=== PATIENT | male | born 1960 | race Two or more races ===

== ENCOUNTER 2025-06-14 19:17 | Inpatient (IN) | payer MEDICAID, OTHER ==
[~2025-06-14] VITALS: Ht 170.2 cm; Wt 74.7 kg
--- NOTE | 2025-06-14 20:13 | ED.PDOC ---
History of Present Illness HPI Comments 64 y/o M is [id number] relative for c/c of urinary retention. Per relative, patient endorses on 2x day history of being only to produce "droplets" of urine. No previous history of similar issues in the past. Only reported medical history of kidney disease. No reported dysuria, hematuria, fever, chills, or further acute symptoms. Chief Complaint: Urinary Time Seen by MD: 19:40 Reviewed Notes: Nurses Notes, Medications, Allergies Information Source: Patient Mode of Arrival: Wheelchair Severity: Moderate Timing: Hours Duration: Since onset Prehospital treatment: None Past Medical History PAST MEDICAL HISTORY: CKF Surgical History: Denies all surgeries Social History Smoker: Non-Smoker Alcohol: Denies ETOH Use Drugs: Denies Drug Use Lives In: Home All Other Systems: Reviewed and Negative (As per HPI) Physical Exam General Appearance: Mild Distress, Normal HEENT: Normal ENT Inspection, Pharynx Normal, TMs Normal Neck: Full Range of Motion, Non-Tender, Normal, Normal Inspection Respiratory: Chest Non-Tender, Lungs Clear, No Accessory Muscle Use, No Respiratory Distress, Normal Breath Sounds Cardiovascular: No Edema, No JVD, No Murmur, No Gallop, Normal Peripheral Pulses, Regular Rate/Rhythm Breast Exam: Deferred Gastrointestinal: No Organomegaly, Non Tender, No Pulsatile Mass, Normal Bowel Sounds, Soft Genitalia: Deferred Pelvic: Deferred Rectal: Deferred Extremities: No calf tenderness, Normal capillary refill, Normal inspection, Normal range of motion, Non-tender, No pedal edema Musculoskeletal : Apperance: Normal Neurologic: Alert, icer machine II-XII nml as Tested, No Motor Deficits, Normal Affect, Normal Mood, No Sensory Deficits Cerebellar Function: Normal Reflexes: Normal Skin: Dry, Normal Color, Warm Lymphatic: No Adenopathy Was a procedure done? Was a procedure done?: No Differential Dx Considerations may include: urolithiasis, nephrolithiasis, cystitis, pyelonephritis, among others X-Ray, Labs, Meds, VS Vital Signs Date Time Temp Pulse Resp B/P (MAP) Pulse Ox O2 Delivery O2 Flow Rate FiO2 06/14/25 19:21 100.0 87 18 163/69 98 100.0 Lab Test 06/14/25 20:17 06/14/25 19:52 Range/Units Urine Color Light-brown Yellow Urine Clarity Ex.turbid Clear Urine pH 7.0 5.0-9.0 Urine Specific [place] 1.013 1.001-1.035 Urine Protein 3+ H Negative Urine Ketones Negative Negative Urine Blood 3+ H Negative /uL Urine Nitrite Negative Negative Urine Bilirubin Negative Negative Urine Urobilinogen Normal Negative mg/dL Urine Leukocyte Esterase 3+ Negative /uL Urine RBC 794 0 - 3 /hpf Urine WBC Clumps Present None Seen /hpf Urine Microscopic WBC 2166 H 0-3 /HPF Urine Squamous Epithelial Cells None seen <5 /hpf Urine Bacteria None seen None Seen /hpf Urine Glucose Normal Normal mg/dL White Blood Count 17.2 H 4.4-10.8 10^3/uL Red Blood Count 3.51 L 4.5-5.90 10^6/uL Hemoglobin 10.9 L 13.5-17.5 g/dL Hematocrit 32.0 L 41.0-53.0 % Mean Corpuscular Volume 91.2 80.0-100.0 fL Mean Corpuscular Hemoglobin 31.1 28.0-32.0 pg Mean Corpuscular Hemoglobin Concent 34.1 32.0-36.0 g/dL Red Cell Distribution Width 13.6 11.8-14.3 % Platelet Count 227 140-450 10^3/uL Mean Platelet Volume 8.9 6.9-10.8 fL Neutrophils (%) (Auto) 90.1 H 37.0-80.0 % Lymphocytes (%) (Auto) 3.2 L 10.0-50.0 % Monocytes (%) (Auto) 6.3 0.0-12.0 % Eosinophils (%) (Auto) 0.2 0.0-7.0 % Basophils (%) (Auto) 0.2 0.0-2.0 % Neutrophils # (Auto) 15.5 H 1.6-8.6 10 ^3/uL Lymphocytes # (Auto) 0.5 0.4-5.4 10 ^3/uL Monocytes # (Auto) 1.1 0-1.3 10 ^3/uL Eosinophils # (Auto) 0 0-0.8 10 ^3/uL Basophils # (Auto) 0 0-0.2 10 ^3/uL Nucleated Red Blood Cells 0.0 % Sodium Level 141 136-145 mmol/L Potassium Level 4.7 3.5-5.1 mmol/L Chloride Level 102 98-107 mmol/L Carbon Dioxide Level 29 20-31 mmol/L Anion Gap 10 5-15 Blood Urea Nitrogen 53 H 9-23 mg/dL Creatinine 4.98 H 0.700-1.30 mg/dL Glomerular Filtration Rate Calc 12 >90 mL/min BUN/Creatinine Ratio 10.6 10.0-20.0 Serum Glucose 125 H 74-106 mg/dL Calcium Level 9.2 8.7-10.4 mg/dL Time of 1ST Reevaluation: 20:20 Reevaluation 1ST: Unchanged Patient Education/Counseling: Diagnosis, Treatment Family Education/Counseling: Diagnosis, Treatment SEPSIS Sepsis Screen Date sepsis recognized/suspect: Jun 14, 2025 Time Sepsis recognized/suspect: 1922 Recent Procedure: No On Antibiotic Therapy: No Respiratory Rate >20: No Heart Rate >90: No Temp<36 C (96.8 F) or >38.3 C: No SBP <90 or MAP <65 mmHG: No New Acute Mental Status Change: No Is the patient on CPAP, BIPAP,: No Physician Orders Lactic Acid W/ Reflex Order (06/14/25 21:07) Blood Culture (06/14/25 21:07) NS (06/14/25 21:15) Ceftriaxone Ivpb Rocephin (06/14/25 21:15) Vital Signs Date Time Temp Pulse Resp B/P (MAP) Pulse Ox O2 Delivery O2 Flow Rate FiO2 06/14/25 19:21 100.0 87 18 163/69 98 100.0 Laboratory Tests Test 06/14/25 19:52 White Blood Count 17.2 10^3/uL (4.4-10.8) H Departure 1 Departure Time of Disposition: 21:09 Impression: Primary Impression: Acute renal failure Additional Impressions: Urinary tract infection Pyelonephritis Disposition: ADMITTED INPATIENT Admit to: Med Surg Condition: Guarded Discharged With: Self Comments 64-year-old male with a history of renal insufficiency now with dysuria and signs of UTI. On lab review his urinalysis does confirm a UTI. He also has worsened kidney failure. Patient was given IV fluids and IV antibiotics. Patient will need to be admitted for supportive care and further workup and nephrology consultation Critical Care Note Critical Care Time?: No Stability Stability form required: No Heart Score Heart Score: Heart Score Response (Comments) Value History N/A 0 EKG N/A 0 Age N/A 0 Risk Factors N/A 0 Troponin N/A 0 Total 0 I personally scribed for NOEL RIVERA MD ([email or web address]) on 06/14/25 at 20:13. Electronically submitted by Marcos Kaminski [email or web address]). NOEL RIVERA MD Jun 14, 2025 20:13
[2025-06-14 20:14] LABS: Hematocrit 32.0 % (41.0-53.0); Hemoglobin 10.9 g/dL (13.5-17.5); Mean Corpuscular Hemoglobin 31.1 pg (28.0-32.0); Mean Corpuscular Volume 91.2 fL (80.0-100.0); Nucleated Red Blood Cells % 0.0 %
[2025-06-14 20:22] LABS: Chloride 102 mmol/L (98-107); Potassium 4.7 mmol/L (3.5-5.1); Sodium 141 mmol/L (136-145)
[2025-06-14 20:23] LABS: Anion Gap 10 (5-15); Calcium 9.2 mg/dL (8.7-10.4); Carbon Dioxide 29 mmol/L (20-31)
[2025-06-14 20:28] LABS: BUN/Creatinine Ratio 10.6 (10.0-20.0)
[2025-06-14 20:34] LABS: Blood Urea Nitrogen 53 mg/dL (9-23); Glucose 125 mg/dL (74-106)
[2025-06-14 20:35] LABS: Urine Protein, UAD 3+ (Negative); Urine WBC Clumps PRESENT /hpf (None Seen)
--- NOTE | 2025-06-14 21:55 | DVH ---
EXAM: CT CT AB PEL WO CON-NO ORAL OR IV History: flank pain Comparison Study: None TECHNIQUE: Multidetector CT of the abdomen and pelvis without IV contrast. Axial, coronal and sagittal multiplanar reformats were obtained from the axial data set by the technologist. Radiation Dose Information: CT Dose: CTDI volume is 11.27 mGy. Dose-length product is 3.92 mGy*cm FINDINGS: Bibasilar atelectasis. 4 mm right basilar pleural based nodule with 2.4 x 1.4 cm opacity of the right lung base overlying an area of linear atelectasis. Mild cardiomegaly with trace pericardial effusion. Moderate to significant distention of the gallbladder with no evidence of cholelithiasis or CT evidence of acute cholecystitis. Liver, spleen, pancreas and adrenal glands unremarkable. Moderate bilateral perinephric and periureteral fat stranding. Extrarenal pelvises with [id number] hydro nephrosis mild bilateral hydro ureters with nonobstructing calculus noted. Mild wall thickening of the urinary bladder with adjacent fat stranding. Prostate measures 3.3 x 4.5 x 3.8 cm. Mild gastric wall thickening. Small bowel loops unremarkable. Appendix is unremarkable. Redundancy of the colon. Large amount of fecal material within the colon. No evidence of intraperitoneal free air or free fluid. Fat stranding within the pelvis. No evidence of aortic aneurysm. [id number] atherosclerotic calcification of the aorta with heavy atherosclerotic calcification of the iliac arteries. No significant lymphadenopathy. Small fat containing left inguinal hernia. Minimal body wall edema. No evidence of acute osseous abnormalities. Mixed lytic and sclerosis of the L2 vertebral body with slightly increased sclerosis of the spinous process. Metastasis is within the differential. IMPRESSION: Moderate bilateral perinephric and Periureteral fat stranding with wall thickening of the urinary bladder and associated adjacent fat stranding. Correlate for cystitis with ascending infectious process. Mild to moderate bilateral hydronephrosis with no obstructing calculus noted. Constipation. Mild gastric wall thickening which may be due to inadequate distention/mild gastritis. Bibasilar linear atelectasis with 4 mm Right basilar solid nodule. Recommend correlation minor criteria. 2.4 x 1.4 cm opacity of the right lung base overlying an area of linear atelectasis which may represent atelectasis/scarring with lung lesion not excluded. Follow-up is recommended. Mixed lytic and sclerosis of the L2 vertebral body with slightly increased sclerosis of the spinous process of L2. Metastasis is within the differential.
[2025-06-14] MEDS: SODIUM CHLORIDE 0.9% 1,000 ML IV ONE (22:32)
[2025-06-14 22:35] LABS: INR 1.0 (0.9-1.15); Partial Thromboplastin Time 38.2 SEC (24.5-34.5); Prothrombin Time 10.6 sec (9.3-11.8)
[2025-06-14] MEDS ORDERED: SODIUM CHLORIDE 0.9% 2,000 ML IV ONE (23:30)
[2025-06-15] MEDS: SODIUM CHLORIDE 0.9% 1,000 ML IV ONE ×2 (00:09→02:21)
--- NOTE | 2025-06-15 01:37 | DVHHPRES ---
History of Present Illness Resident Creating Document: FAHAD [place] RESDIENT History of Present Illness This is a 64-year-old gentleman with past medical history of hypertension, BPH, diabetes, CKD, stroke, came to the hospital due to inability to pass urine since 2 days. Per patient, he adjust past few urine drops, which was associated with blood. He also reports of generalized weakness and lower abdominal discomfort. He denies fever, chest pain, shortness of breath, or any bowel habit changes. Patient being seen by welfare administrator (Dr. Marie), and per patient he was told that he may need dialysis in near future. PMHx:hypertension, BPH, diabetes, CKD, stroke PSHx: Hernia surgery Social history: Current smoker Home medication: Atorvastatin, duloxetine, tamsulosin, calcium acetate, sodium bicarbonate, amlodipine, Epogen, losartan, calcitriol, sucralfate, famotidine, and finasteride Allergic history: No known allergy Patient seen and examined at the bedside. Patient is complaining of inability to pass urine and abdominal discomfort. Review of Systems Review of Systems General: patient denies fever, fatigue, weaknes, sweating, any recent changes in appetite and weight HEENT: No headaches, visiual changes, hearing loss, tinnitus, nasal congestion and discharge, and sore throat. Cardiovascular: Denies chest pain, palpitations, dyspnea on exertion, orthopnea, or claudication. Respiratory: No cough, and wheezing. Gastrointestinal: Denies nausea, vomiting, dysphagia, odynophagia, heartburn, abdominal pain, flatulence, bloating, diarrhea, constipation, change in stool, or blood in stool. Genitourinary: Reports Inability to pass urine and lower abdominal discomfort Endocrine: No heat or cold intolerance, polydipsia, polyuria, and polyphagia. Neurological: No dizziness, extremity weakness and numbness, tremors, gait disturbance, seizures, and memory impairment. Psychiatric: Denies depression, anxiety,or insomnia. Musculoskeletal: Denies neck pain, stiffness and swelling, back pain, muscle weakness, joint pain, stiffness, swelling, or limited range of motion. Skin: No rashes, itching, skin lesion, changes in hair, nail, skin texture and breast. Hematologic/Lymphatic: Denies easy bruising, bleeding tendencies, or lymph node enlargement. Allergies: Coded Allergies: NO KNOWN ALLERGIES (Unverified , 06/15/25) Exam Vital Signs Vital Signs Date Time Temp Pulse Resp B/P (MAP) Pulse Ox O2 Delivery O2 Flow Rate FiO2 06/14/25 23:12 99.6 79 18 141/73 (95) 96 99.6 Exam General Appearance: Alert, Oriented X3, Cooperative, No acute distress HEENT: Atraumatic, PERRLA, EOMI, Mucous membrane moist/pink Respiratory: Clear to auscultation, Normal air movement Cardiovascular: Regular rate, Normal S1, Normal S2, No murmurs, no chest wall tenderness Abdominal: Lower abdominal tenderness Extremities: No clubbing, No cyanosis, No edema, Normal pulses, No tenderness/swelling Skin: No rashes, No breakdown, No significant lesion Neuro: Normal gait, Normal speech, Strength at 5/5 X4 ext, Normal tone, Sensation intact, Cranial nerves 3-12 NL, Reflexes 2+ Psych/Mental Status: Mental status NL, Mood NL Labs/Xrays Labs Test 06/14/25 21:34 06/14/25 20:17 06/14/25 19:52 Range/Units Lactic Acid Level 1.1 0.4-2.0 mmol/L Urine Color Light-brown Yellow Urine Clarity Ex.turbid Clear Urine pH 7.0 5.0-9.0 Urine Specific [place] 1.013 1.001-1.035 Urine Protein 3+ H Negative Urine Ketones Negative Negative Urine Blood 3+ H Negative /uL Urine Nitrite Negative Negative Urine Bilirubin Negative Negative Urine Urobilinogen Normal Negative mg/dL Urine Leukocyte Esterase 3+ Negative /uL Urine RBC 794 0 - 3 /hpf Urine WBC Clumps Present None Seen /hpf Urine Microscopic WBC 2166 H 0-3 /HPF Urine Squamous Epithelial Cells None seen <5 /hpf Urine Bacteria None seen None Seen /hpf Urine Glucose Normal Normal mg/dL White Blood Count 17.2 H 4.4-10.8 10^3/uL Red Blood Count 3.51 L 4.5-5.90 10^6/uL Hemoglobin 10.9 L 13.5-17.5 g/dL Hematocrit 32.0 L 41.0-53.0 % Mean Corpuscular Volume 91.2 80.0-100.0 fL Mean Corpuscular Hemoglobin 31.1 28.0-32.0 pg Mean Corpuscular Hemoglobin Concent 34.1 32.0-36.0 g/dL Red Cell Distribution Width 13.6 11.8-14.3 % Platelet Count 227 140-450 10^3/uL Mean Platelet Volume 8.9 6.9-10.8 fL Neutrophils (%) (Auto) 90.1 H 37.0-80.0 % Lymphocytes (%) (Auto) 3.2 L 10.0-50.0 % Monocytes (%) (Auto) 6.3 0.0-12.0 % Eosinophils (%) (Auto) 0.2 0.0-7.0 % Basophils (%) (Auto) 0.2 0.0-2.0 % Neutrophils # (Auto) 15.5 H 1.6-8.6 10 ^3/uL Lymphocytes # (Auto) 0.5 0.4-5.4 10 ^3/uL Monocytes # (Auto) 1.1 0-1.3 10 ^3/uL Eosinophils # (Auto) 0 0-0.8 10 ^3/uL Basophils # (Auto) 0 0-0.2 10 ^3/uL Nucleated Red Blood Cells 0.0 % Prothrombin Time 10.6 9.3-11.8 sec Prothrombin Time INR 1.00 0.9-1.15 Activated Partial Thromboplast Time 38.2 H 24.5-34.5 SEC Sodium Level 141 136-145 mmol/L Potassium Level 4.7 3.5-5.1 mmol/L Chloride Level 102 98-107 mmol/L Carbon Dioxide Level 29 20-31 mmol/L Anion Gap 10 5-15 Blood Urea Nitrogen 53 H 9-23 mg/dL Creatinine 4.98 H 0.700-1.30 mg/dL Glomerular Filtration Rate Calc 12 >90 mL/min BUN/Creatinine Ratio 10.6 10.0-20.0 Serum Glucose 125 H 74-106 mg/dL Calcium Level 9.2 8.7-10.4 mg/dL SEPSIS Sepsis Screen Date sepsis recognized/suspect: Jun 14, 2025 Time Sepsis recognized/suspect: 2311 Recent Procedure: No On Antibiotic Therapy: Yes Respiratory Rate >20: No Heart Rate >90: No Temp<36 C (96.8 F) or >38.3 C: No SBP <90 or MAP <65 mmHG: No New Acute Mental Status Change: No Is the patient on CPAP, BIPAP,: No Physician Orders Blood Culture (06/14/25 21:07) Ct Ab Pel Wo Con-No Oral Or Iv (06/14/25 21:11) Admit (06/14/25 23:47) Code Status (06/14/25 23:47) Vital Signs .PER UNIT PROTOCOL (06/14/25 23:47) Review Orders With Adm.Md (06/14/25 23:47) Notify Md Of Changes From Base (06/14/25 23:47) Advance Directive (06/14/25 23:47) Patient Condition (06/14/25 23:47) Allergies (06/14/25 23:47) Oxygen By Nasal Cannula (06/14/25 23:47) Stat Ekg For Chest Pain (06/14/25 23:47) Notify Md Of Changes From Base (06/14/25 23:47) Emergency Dysrhythmia Protocol (06/14/25 23:47) Rhythm Strips Once Every Shift (06/14/25 23:47) Bladder Scan (06/14/25 ) Vital Signs Date Time Temp Pulse Resp B/P (MAP) Pulse Ox O2 Delivery O2 Flow Rate FiO2 06/14/25 23:12 99.6 79 18 141/73 (95) 96 99.6 06/14/25 22:30 100.3 84 16 152/70 (97) 93 100.3 06/14/25 19:21 100.0 87 18 163/69 98 100.0 Laboratory Tests Test 06/14/25 19:52 06/14/25 21:34 White Blood Count 17.2 10^3/uL (4.4-10.8) H Lactic Acid Level 1.1 mmol/L (0.4-2.0) Medications Medications Dose Ordered Sig/Glenn Route Start Time Stop Time Status Last Admin Dose Admin Ceftriaxone Sodium/Dextrose 50 ml @ 50 mls/hr ONCE ONCE IV 06/14/25 21:15 06/14/25 22:14 DC 06/14/25 22:41 50 MLS/HR Sodium Chloride 1,000 ml @ 1,000 mls/hr Q1H ONCE IV 06/14/25 21:15 06/14/25 22:14 DC 06/14/25 22:32 1,000 MLS/HR Sodium Chloride 1,000 ml @ 1,000 mls/hr Q1H ONCE IV 06/15/25 00:00 06/15/25 00:59 DC 06/15/25 00:09 1,000 MLS/HR Assessment/Plan Assessment/Plan Sepsis, due to UTI Complicated UTI ROBERTA, on CKD, (due to obstructive nephropathy) VMN Urinary retention History of BPH History of stroke Diabetes type 2 Hypertension Moderate anemia, due to above * CT abdominopelvic shows, moderate bilateral perinephric and Periureteral fat stranding with wall thickening of the urinary bladder and associated adjacent fat stranding. Correlate for cystitis with ascending infectious process with Mild to moderate bilateral hydronephrosis with no obstructing calculus noted * Bladder scan performed, showed 76 mL Plan/recommendation: * Empiric antibiotic Zosyn, and vancomycin * IV fluid * Urine/blood culture * Consulted nephrology * Continue home meds DIET: Renal diet DVT PROPHYLAXIS: Lovenox GI PROPHYLAXIS:: Protonix CODE STATUS: Goal of care discussed for more than 18 minutes, full code DISPOSITION: Med/surge Patient's status and plan discussed with the patient. Case discussed with Dr. Rodriguez. Plan discussed with: Patient, Daughter, Other (RN) My Orders Orders - FAHAD [place] RESDIENT Procedure Category Date Status Time Admit ADMIT 06/14/25 Transmitted 23:47 Code Status CODE 06/14/25 Transmitted 23:47 Vital Signs [facility] 06/14/25 In Process 23:47 Review Orders With [facility] 06/14/25 In Process Adm. 23:47 Notify Of Changes [facility] 06/14/25 In Process From Base 23:47 Advance Directive [facility] 06/14/25 In Process 23:47 Patient Condition ORDERS 06/14/25 Transmitted 23:47 Allergies [facility] 06/14/25 In Process 23:47 Oxygen By Nasal RT 06/14/25 Transmitted Cannula 23:47 Stat Ekg For Chest [facility] 06/14/25 In Process Pain 23:47 Notify Of Changes [facility] 06/14/25 In Process From Base 23:47 Emergency Dysrhythmia [facility] 06/14/25 In Process Protocol 23:47 Rhythm Strips Once [facility] 06/14/25 In Process Every Shift 23:47 Bladder Scan ED NURSING 06/14/25 Transmitted Visit Coding STANDARD RES Billing Provider: LEANA RODRIGUEZ MD Date of Service if different f: Jun 14, 2025 Common Visit Codes: 84090-LAXCOQZ INP/OBS CARE (HIGH) Secondary Visit Codes: 60580-[id number] CARE PLAN 30 MINUTES FAHAD [place] Jun 15, 2025 01:37
[2025-06-15] MEDS ORDERED: VANCOMYCIN PER PHARMACY 0 MG IV SCH (01:45)
[2025-06-15] MEDS ORDERED: HYDROcodone-ACET 5/325MG TAB PO PRN (01:45)
[2025-06-15] MEDS: ATORVASTATIN 20 MG TAB PO ONE (02:15)
[2025-06-15] MEDS: TAMSULOSIN HYDROCHLORIDE 0.4 MG CAP PO ONE (02:15)
[2025-06-15] MEDS: ENOXAPARIN SOD 40 MG/0.4 ML SYRINGE SC ONE (02:16)
[2025-06-15] MEDS: FINASTERIDE 5 MG TAB PO ONE (02:16)
[2025-06-15] MEDS: VANCOMYCIN 1.5GM/250ML 250 ML IV ONE (04:03)
[2025-06-15 05:31] LABS: Protein, Urine 476.8 mg/dL (1-14)
[2025-06-15] MEDS ORDERED: ASCO500T11 GT (05:50)
[2025-06-15] MEDS ORDERED: FURO40TA4 PO (05:50)
[2025-06-15] MEDS ORDERED: LOSA-535 PO (05:50)
[2025-06-15] MEDS ORDERED: HYD25TP TOP (05:50)
[2025-06-15] MEDS ORDERED: SODI325T PO (05:50)
[2025-06-15] MEDS ORDERED: CHOL20TA PO (05:50)
[2025-06-15] MEDS ORDERED: AMLO1TAB23 PO (05:50)
[2025-06-15] MEDS ORDERED: ASPI1TAB20 PO (05:50)
[2025-06-15] MEDS ORDERED: FER325T PO (05:50)
[2025-06-15] MEDS ORDERED: HYDR100T10 PO (05:50)
[2025-06-15] MEDS ORDERED: DULO20CA PO (05:50)
[2025-06-15] MEDS ORDERED: FLUT250M2 INH (05:50)
[2025-06-15] MEDS ORDERED: ATOR-47 PO (05:50)
[2025-06-15] MEDS ORDERED: FINA5TAB4 PO (05:50)
[2025-06-15] MEDS ORDERED: SODI650T PO (05:50)
[2025-06-15] MEDS ORDERED: TAMS0.4C39 PO (05:50)
[2025-06-15] MEDS: ACETAMINOPHEN 325 MG TAB PO SCH (05:50)
[2025-06-15 05:55] LABS: Hematocrit 29.7 % (41.0-53.0); Hemoglobin 9.7 g/dL (13.5-17.5); Mean Corpuscular Hemoglobin 30.8 pg (28.0-32.0); Mean Corpuscular Volume 94.2 fL (80.0-100.0); Nucleated Red Blood Cells % 0.0 %
[2025-06-15 06:21] LABS: Alanine Aminotransferase 15 U/L (7-40); Albumin 3.6 g/dL (3.2-4.8); Alkaline Phosphatase 87 U/L (46-116); Anion Gap 11 (5-15); BUN/Creatinine Ratio 14.4 (10.0-20.0); Carbon Dioxide 26 mmol/L (20-31); Chloride 104 mmol/L (98-107); Magnesium 2.2 mg/dL (1.6-2.6); Potassium 4.4 mmol/L (3.5-5.1); Sodium 141 mmol/L (136-145); Total Protein 6.3 g/dL (5.7-8.2)
[2025-06-15 06:36] LABS: Bilirubin, Total 0.3 mg/dL (0.2-1.0); Blood Urea Nitrogen 67 mg/dL (9-23); Calcium 8.2 mg/dL (8.7-10.4); Glucose 124 mg/dL (74-106)
[2025-06-15 08:00] VITALS: O2SAT 96
[2025-06-15 09:00] VITALS: BP 120/65; PULSE 65; RESP 19; TEMP 97.4; O2SAT 97
[2025-06-15] MEDS: PANTOPRAZOLE 40 MG/10 ML VIAL INJ IV SCH (09:12)
[2025-06-15] MEDS: PIPERACILLIN-TAZOB 3.375GM 100 ML IV SCH (09:13)
[2025-06-15] MEDS: FINASTERIDE 5 MG TAB PO SCH (09:13)
[2025-06-15] MEDS: ENOXAPARIN SOD 40 MG/0.4 ML SYRINGE SC SCH (09:14)
[2025-06-15 13:00] VITALS: BP 134/48; PULSE 65; TEMP 98.2; O2SAT 97
--- NOTE | 2025-06-15 13:39 | DVHINCON2 ---
Date of service: Jun 15, 2025 Reason for Consultation CKD History of Present Illness 64 year old male hx CKD V, htn, Dm2, CVA w/ right residual weakness known to me from my renal clinic he is pending Peritoneal dialysis once he is ESRD but currently not time for dialysis He presented with 2 days of burning urination He is found to have urinary infection Past Medical History dm2, cva, htn Allergies: Coded Allergies: NO KNOWN ALLERGIES (Unverified , 06/15/25) Home Meds Reported Medications Sodium Bicarbonate (Sodium Bicarbonate) 650 Mg Tab, 650 MG PO, TAB 06/15/25 Ferrous Sulfate (FERROUS SULFATE) 325 Mg Tb, 325 MG PO, TAB 06/15/25 Finasteride (Finasteride) 5 Mg Tab, 1 TAB PO DAILY, #30 TAB 11 Refills 06/15/25 Amlodipine Besylate (Amlodipine Besylate) 10 Mg Tab, 1 TAB PO DAILY, #30 TAB 5 Refills 06/15/25 Aspirin (Aspir-81) 81 Mg Tab, 81 MG PO, TAB 06/15/25 Duloxetine Hcl (Cymbalta) 20 Mg Cap, 30 MG PO, CAP 06/15/25 Atorvastatin Calcium (ATORVASTATIN CALCIUM) 80 Mg Tab, 1 TAB PO DAILY, #30 TAB 5 Refills 06/15/25 Tamsulosin Hcl (Tamsulosin Hcl) 0.4 Mg Cap, 1 CAP PO DAILY, #30 CAP 5 Refills 06/15/25 Hydrocortone (Hydrocortisone 2.5%) 1 Applic Ap, 1 APPLIC TOP BID, #60 GRAMS 06/15/25 Ascorbic Acid (VITAMIN C TABLET) 500 Mg Tb, 500 MG GT, TAB 06/15/25 Fluticasone-Salmeterol (Advair Diskus 250/50) 1 Puff Ih, 1 PUFF INH BID, #3 INHALER 3 Refills 06/15/25 Furosemide (Furosemide) 40 Mg Tab, 1 TAB PO DAILY, #30 TAB 5 Refills 06/15/25 Cholecalciferol (Vitamin D3) 20 Mcg Tab, 50 MCG PO, TAB 06/15/25 Losartan Potassium (Losartan Potassium) 100 Mg Tab, 1 TAB PO DAILY, #30 TAB 5 Refills 06/15/25 Sodium Bicarbonate (Sodium Bicarbonate) 325 Mg Tab, 325 MG PO, TAB 06/15/25 Hydralazine Hcl (Hydralazine Hcl) 100 Mg Tab, 1 TAB PO TID, #90 TAB 5 Refills 06/15/25 Current Medications Current Medications Medications (Trade) Dose Ordered Sig/Glenn Route PRN Reason Start Time Stop Time Status Last Admin Piperacillin Sod/ Tazobactam Sod 100 ml @ 25 mls/hr Q12HR IV 06/15/25 10:00 06/15/25 09:13 Vancomycin HCl 0 ml @ 0 mls/hr PER PHARMACY IV 06/15/25 01:45 06/15/25 08:23 DC Acetaminophen (Tylenol Tablet) 650 mg Q6HR PO 06/15/25 06:00 06/15/25 05:50 Acetaminophen/ Hydrocodone Bitart (Wilber 5/325MG Tab) 1 tab Q6HPRN PRN PO MODERATE PAIN (4-6 PAIN SCALE) 06/15/25 01:45 Atorvastatin Calcium (Lipitor) 80 mg HS PO 06/15/25 22:00 Finasteride (Proscar Tablet) 5 mg DAILY PO 06/15/25 10:00 06/15/25 09:13 Tamsulosin HCl (Flomax) 0.4 mg QPM PO 06/15/25 18:00 Amlodipine Besylate (Norvasc Tablet) 5 mg DAILY PO 06/15/25 10:00 06/15/25 09:13 Pantoprazole Sodium (Protonix) 40 mg DAILY IV 06/15/25 10:00 06/15/25 09:12 Enoxaparin Sodium (Lovenox) 40 mg DAILY SC 06/15/25 10:00 06/15/25 09:14 Hydralazine HCl (Apresoline Tablet) 10 mg Q8HR PO 06/15/25 06:00 06/15/25 05:51 Family History: Patient reports no known family medical history. H&P Exam Vital Signs/I&O Vital Sign Date Time Temp Pulse Resp B/P (MAP) Pulse Ox O2 Delivery O2 Flow Rate FiO2 06/15/25 09:13 142/98 06/15/25 09:00 97.4 65 19 97 97.4 06/15/25 08:00 Room Air* 0 21 Intake and Output 06/14/25 06/15/25 19:00 07:00 Intake Total 250 ml Balance 250 ml Intake IV Total 250 ml Physical Exam elderly armenian male nad abd soft no pitting edema mild facial asymmetry Labs/Diagnostic Data Labs/Diagnostic Data Laboratory Tests Test 06/15/25 04:59 06/15/25 04:00 06/14/25 21:34 06/14/25 20:17 Range/Units Sodium Level 141 136-145 mmol/L Potassium Level 4.4 3.5-5.1 mmol/L Chloride Level 104 98-107 mmol/L Carbon Dioxide Level 26 20-31 mmol/L Anion Gap 11 5-15 Blood Urea Nitrogen 67 #H 9-23 mg/dL Creatinine 4.66 H 0.700-1.30 mg/dL Glomerular Filtration Rate Calc 13 >90 mL/min BUN/Creatinine Ratio 14.4 10.0-20.0 Serum Glucose 124 H 74-106 mg/dL Hemoglobin A1c 5.4 <5.7 % A1C Calcium Level 8.2 L 8.7-10.4 mg/dL Magnesium Level 2.2 1.6-2.6 mg/dL Total Bilirubin 0.3 0.2-1.0 mg/dL Aspartate Amino Transferase (AST) 9 L 13-40 U/L Alanine Aminotransferase (ALT) 15 7-40 U/L Alkaline Phosphatase 87 46-116 U/L Total Protein 6.3 5.7-8.2 g/dL Albumin 3.6 3.2-4.8 g/dL Parathyroid Hormone (Intact) 147.5 H 18.4-80.1 pg/mL White Blood Count 15.7 H 4.4-10.8 10^3/uL Red Blood Count 3.15 L 4.5-5.90 10^6/uL Hemoglobin 9.7 L 13.5-17.5 g/dL Hematocrit 29.7 L 41.0-53.0 % Mean Corpuscular Volume 94.2 80.0-100.0 fL Mean Corpuscular Hemoglobin 30.8 28.0-32.0 pg Mean Corpuscular Hemoglobin Concent 32.7 32.0-36.0 g/dL Red Cell Distribution Width 13.9 11.8-14.3 % Platelet Count 177 140-450 10^3/uL Mean Platelet Volume 9.0 6.9-10.8 fL Neutrophils (%) (Auto) 85.4 H 37.0-80.0 % Lymphocytes (%) (Auto) 7.3 L 10.0-50.0 % Monocytes (%) (Auto) 7.0 0.0-12.0 % Eosinophils (%) (Auto) 0.1 0.0-7.0 % Basophils (%) (Auto) 0.2 0.0-2.0 % Neutrophils # (Auto) 13.4 H 1.6-8.6 10 ^3/uL Lymphocytes # (Auto) 1.2 0.4-5.4 10 ^3/uL Monocytes # (Auto) 1.1 0-1.3 10 ^3/uL Eosinophils # (Auto) 0 0-0.8 10 ^3/uL Basophils # (Auto) 0 0-0.2 10 ^3/uL Nucleated Red Blood Cells 0.0 % Lactic Acid Level 1.1 0.4-2.0 mmol/L Urine Color Light-brown Yellow Urine Clarity Ex.turbid Clear Urine pH 7.0 5.0-9.0 Urine Specific [place] 1.013 1.001-1.035 Urine Protein 3+ H Negative Urine Ketones Negative Negative Urine Blood 3+ H Negative /uL Urine Nitrite Negative Negative Urine Bilirubin Negative Negative Urine Urobilinogen Normal Negative mg/dL Urine Leukocyte Esterase 3+ Negative /uL Urine RBC 794 0 - 3 /hpf Urine WBC Clumps Present None Seen /hpf Urine Microscopic WBC 2166 H 0-3 /HPF Urine Squamous Epithelial Cells None seen <5 /hpf Urine Bacteria None seen None Seen /hpf Urine Creatinine 70.37 30.0-125.0 mg/dL Urine Protein/Creatinine Ratio 6.78 Urine Sodium 49 40-220 mmol/L Urine Glucose Normal Normal mg/dL Urine Total Protein 476.8 H 1-14 mg/dL Test 06/14/25 19:52 Range/Units White Blood Count 17.2 H 4.4-10.8 10^3/uL Red Blood Count 3.51 L 4.5-5.90 10^6/uL Hemoglobin 10.9 L 13.5-17.5 g/dL Hematocrit 32.0 L 41.0-53.0 % Mean Corpuscular Volume 91.2 80.0-100.0 fL Mean Corpuscular Hemoglobin 31.1 28.0-32.0 pg Mean Corpuscular Hemoglobin Concent 34.1 32.0-36.0 g/dL Red Cell Distribution Width 13.6 11.8-14.3 % Platelet Count 227 140-450 10^3/uL Mean Platelet Volume 8.9 6.9-10.8 fL Neutrophils (%) (Auto) 90.1 H 37.0-80.0 % Lymphocytes (%) (Auto) 3.2 L 10.0-50.0 % Monocytes (%) (Auto) 6.3 0.0-12.0 % Eosinophils (%) (Auto) 0.2 0.0-7.0 % Basophils (%) (Auto) 0.2 0.0-2.0 % Neutrophils # (Auto) 15.5 H 1.6-8.6 10 ^3/uL Lymphocytes # (Auto) 0.5 0.4-5.4 10 ^3/uL Monocytes # (Auto) 1.1 0-1.3 10 ^3/uL Eosinophils # (Auto) 0 0-0.8 10 ^3/uL Basophils # (Auto) 0 0-0.2 10 ^3/uL Nucleated Red Blood Cells 0.0 % Prothrombin Time 10.6 9.3-11.8 sec Prothrombin Time INR 1.00 0.9-1.15 Activated Partial Thromboplast Time 38.2 H 24.5-34.5 SEC Sodium Level 141 136-145 mmol/L Potassium Level 4.7 3.5-5.1 mmol/L Chloride Level 102 98-107 mmol/L Carbon Dioxide Level 29 20-31 mmol/L Anion Gap 10 5-15 Blood Urea Nitrogen 53 H 9-23 mg/dL Creatinine 4.98 H 0.700-1.30 mg/dL Glomerular Filtration Rate Calc 12 >90 mL/min BUN/Creatinine Ratio 10.6 10.0-20.0 Serum Glucose 125 H 74-106 mg/dL Calcium Level 9.2 8.7-10.4 mg/dL Assessment CKD 5 HTN acute pyelonephritis anemia due to ckd dm2 CKD is stable, no indication for dialysis at this time. Has plan for outpatient peritoneal dialysis resume home medication IV aBX and urine cultures anemia panel avoid hypotension renal dm2 diet interview obtain at bedside in ER with nurse present and tele- armenian translation services Plan discussed with: Patient LILYReneeDESTINEE MD Jun 15, 2025 13:39
--- NOTE | 2025-06-15 16:19 | DVHPNRES ---
Progress Note Date Seen: Jun 15, 2025 Resident Creating Document: JESSICA BRITO RESIDENT Medical Necessity Reason Pt with a Central, PICC or Fol: No Subjective Review of Systems 64-year-old man with a past medical history of hypertension, BPH, CKD stage 5, stroke came to this facility due to urinary symptoms for the past 2 days. Patient reports that the past few days he has had dysuria, hesitancy, urinary frequency, burning micturition and noted blood in his urine. Also reports of generalized weakness and lower abdominal discomfort. On inquiry, patient reports of subjective fever and chills but denies nausea, vomiting, chest pain, shortness of breath, or any bowel habit changes. Patient being seen by telephone directory deliverer (Dr. Marie), and per patient he was told that he may need dialysis in near future. PMHx:hypertension, BPH, diabetes, CKD, stroke PSHx: Hernia surgery Social history: Current smoker Home medication: Atorvastatin, duloxetine, tamsulosin, calcium acetate, sodium bicarbonate, amlodipine, Epogen, losartan, calcitriol, sucralfate, famotidine, and finasteride Allergic history: No known allergy ROS 06/15/2025: Patient was seen and examined by me at the bedside. labs and charts reviewed. Patient complained of abdominal discomfort and ultrasound of bladder was done which showed no acute urinary retention 76 mL urine in the bladder. IV antibiotics Zosyn continued and vancomycin discontinued. Patient denies any lower abdominal pain today but continues to have urinary symptoms. CT scan abdomen pelvis shows moderate bilateral perinephric and periureteral fat stranding with wall thickening of the urinary bladder. Bilateral hydronephrosis with no obstructing calculus noted. Serum PSA ordered today. Treatment for BPH continued Objective vital signs Vital Sign Date Time Temp Pulse Resp B/P (MAP) Pulse Ox O2 Delivery O2 Flow Rate FiO2 06/15/25 13:44 134/76 06/15/25 13:00 98.2 65 97 98.2 06/15/25 09:00 19 06/15/25 08:00 Room Air* 0 21 Total Intake and Output 06/14/25 06/14/25 06/15/25 15:00 23:00 07:00 Intake Total 250 ml Balance 250 ml medications Current Medications Medications Dose Ordered Sig/Glenn Route Start Time Stop Time Status Last Admin Dose Admin Piperacillin Sod/ Tazobactam Sod 100 ml @ 25 mls/hr Q12HR IV 06/15/25 10:00 06/15/25 09:13 25 MLS/HR Acetaminophen 650 mg Q6HR PO 06/15/25 06:00 06/15/25 05:50 650 MG Acetaminophen/ Hydrocodone Bitart 1 tab Q6HPRN PRN PO 06/15/25 01:45 Atorvastatin Calcium 80 mg HS PO 06/15/25 22:00 Finasteride 5 mg DAILY PO 06/15/25 10:00 06/15/25 09:13 5 MG Tamsulosin HCl 0.4 mg QPM PO 06/15/25 18:00 Amlodipine Besylate 5 mg DAILY PO 06/15/25 10:00 06/15/25 09:13 5 MG Pantoprazole Sodium 40 mg DAILY IV 06/15/25 10:00 06/15/25 09:12 40 MG Enoxaparin Sodium 40 mg DAILY SC 06/15/25 10:00 06/15/25 09:14 40 MG Hydralazine HCl 10 mg Q8HR PO 06/15/25 06:00 06/15/25 13:44 10 MG Examination Pt is lying on bed General Appearance: Alert, Oriented X3, Cooperative, Not in acute distress HEENT: Atraumatic, Mucous membranes moist/pink Respiratory: Clear to auscultation, Normal air movement, No added sounds Cardiovascular: Regular rate, Normal S1, Normal S2, No murmurs Abdominal: Active bowel sounds, Soft, no distention, no tenderness Extremities: No edema, Normal pulses, No tenderness/swelling Skin: No Significant rash, except past surgical scars Neuro: Normal speech, sensorimotor deficits none Psych/Mental Status: Mental status NL, Mood NL Nurse was there as general activities therapist during examination laboratory and microbiology Laboratory Tests 06/15/25 04:59 06/15/25 04:00 Test 06/15/25 04:59 Range/Units Serum Glucose 124 H 74-106 mg/dL Labs and/or images reviewed: Labs reviewed by me, Image(s) reviewed by me Problem List/Assessment/Plan Problem List/Assessment/Plan # Sepsis, due to UTI # Acute Complicated UTI # ROBERTA, on CKD, (due to obstructive nephropathy) VMN # Ruled out Urinary retention # History of BPH # History of stroke # Moderate anemia, due to above ckd -CT abdominopelvic shows, moderate bilateral perinephric and Periureteral fat stranding with wall thickening of the urinary bladder and associated adjacent fat stranding. Correlate for cystitis with ascending infectious process with Mild to moderate bilateral hydronephrosis with no obstructing calculus noted -Bladder scan performed, showed 76 mL -Empiric antibiotic Zosyn -IV fluid -Urine/blood culture pending -Continue home meds -Nephrology consult suggested CKD is stable, no indication for dialysis at this time. Has plan for outpatient peritoneal dialysis; resume home medication; IV aBX and urine cultures; anemia panel; avoid hypotension; renal dm2 diet # Diabetes type 2 # Hypertension - ISS - continuously monitor blood pressure GI prophylaxis: Protonix DVT prophylaxis: Lovenox Diet: renal diet Goals of care discussed with the patient for more than 27 minutes: Full code status Case discussed with , patient and nurse. Plan discussed with: Patient, Other (rn) My Orders My Orders Orders - JESSICA BRITO RESIDENT Procedure Category Date Status Time Psa Total+% Free LAB 06/15/25 In Process 15:33 Visit Coding STANDARD RES Billing Provider: ROE TOUSSAINT MD Date of Service if different f: Jun 15, 2025 Common Visit Codes: [id number] INP/OBS CARE(HIGH) JESSICA BRITO RESIDENT Jun 15, 2025 16:19 CLINT PARKER RESIDENT Jun 16, 2025 07:02 ROE TOUSSAINT MD Jun 16, 2025 18:50
[2025-06-15 17:00] VITALS: BP 128/68; PULSE 57; TEMP 98.7; O2SAT 96
[2025-06-15] MEDS: TAMSULOSIN HYDROCHLORIDE 0.4 MG CAP PO SCH (17:30)
[2025-06-15 17:42] LABS: Hematocrit 29.3 % (41.0-53.0); Hemoglobin 9.5 g/dL (13.5-17.5); Mean Corpuscular Hemoglobin 30.2 pg (28.0-32.0); Mean Corpuscular Volume 92.7 fL (80.0-100.0); Nucleated Red Blood Cells % 0.0 %
[2025-06-15 17:55] LABS: Chloride 105 mmol/L (98-107); Potassium 4.5 mmol/L (3.5-5.1); Sodium 141 mmol/L (136-145)
[2025-06-15 17:56] LABS: Anion Gap 10 (5-15); Carbon Dioxide 26 mmol/L (20-31)
[2025-06-15 17:59] LABS: Calcium 8.5 mg/dL (8.7-10.4)
[2025-06-15 18:01] LABS: BUN/Creatinine Ratio 11.8 (10.0-20.0); Glucose 89 mg/dL (74-106)
[2025-06-15 18:12] LABS: Blood Urea Nitrogen 54 mg/dL (9-23)
[2025-06-15 20:00] VITALS: O2SAT 96
[2025-06-15 20:53] VITALS: BP 152/67; PULSE 65; RESP 16; TEMP 98.3; O2SAT 96
[2025-06-15] MEDS: ATORVASTATIN 20 MG TAB PO SCH (21:38)
[2025-06-16] VITALS (7 sets, daily range): BP systolic 139–173; BP diastolic 71–89; PULSE 58–97; RESP 17–18; TEMP 97.8–98.7; O2SAT 95–98
[2025-06-16 06:06] LABS: Hematocrit 27.4 % (41.0-53.0); Hemoglobin 9.0 g/dL (13.5-17.5); Mean Corpuscular Hemoglobin 30.3 pg (28.0-32.0); Mean Corpuscular Volume 92.4 fL (80.0-100.0); Nucleated Red Blood Cells % 0.0 %
[2025-06-16 06:07] LABS: Anion Gap 12 (5-15); Carbon Dioxide 24 mmol/L (20-31); Chloride 105 mmol/L (98-107); Potassium 4.5 mmol/L (3.5-5.1); Sodium 141 mmol/L (136-145)
[2025-06-16 06:08] LABS: Prostate Specific Antigen 3.0 ng/mL (0.0-4.0)
[2025-06-16 06:10] LABS: Iron 28.0 ug/dL (65-175); Total Iron Binding Capacity 176.0 ug/dL (250-425)
[2025-06-16 06:13] LABS: Calcium 8.4 mg/dL (8.7-10.4); Glucose 79 mg/dL (74-106)
[2025-06-16 06:14] LABS: BUN/Creatinine Ratio 10.9 (10.0-20.0)
[2025-06-16 06:16] LABS: Blood Urea Nitrogen 50 mg/dL (9-23)
--- NOTE | 2025-06-16 10:25 | DVHPN2 ---
Progress Note Date Seen: Jun 16, 2025 Medical Necessity Reason Pt with a Central, PICC or Fol: No Subjective Changes from previous H/P or p: No Changes Review of Systems: :Abnormal Objective vital signs Vital Sign Date Time Temp Pulse Resp B/P (MAP) Pulse Ox O2 Delivery O2 Flow Rate FiO2 06/16/25 09:05 173/85 06/16/25 09:00 98.5 69 18 96 98.5 06/16/25 08:00 Room Air* 0 21 Total Intake and Output 06/15/25 06/15/25 06/16/25 15:00 23:00 07:00 Intake Total 3100 ml 380 ml 100 ml Output Total 500 ml 800 ml 1000 ml Balance 2600 ml -420 ml -900 ml medications Current Medications Medications Dose Ordered Sig/Glenn Route Start Time Stop Time Status Last Admin Dose Admin Piperacillin Sod/ Tazobactam Sod 100 ml @ 25 mls/hr Q12HR IV 06/15/25 10:00 06/16/25 09:05 25 MLS/HR Acetaminophen 650 mg Q6HR PO 06/15/25 06:00 06/16/25 06:36 650 MG Acetaminophen/ Hydrocodone Bitart 1 tab Q6HPRN PRN PO 06/15/25 01:45 Atorvastatin Calcium 80 mg HS PO 06/15/25 22:00 06/15/25 21:38 80 MG Finasteride 5 mg DAILY PO 06/15/25 10:00 06/16/25 09:05 5 MG Tamsulosin HCl 0.4 mg QPM PO 06/15/25 18:00 06/15/25 17:30 0.4 MG Pantoprazole Sodium 40 mg DAILY IV 06/15/25 10:00 06/16/25 09:05 40 MG Enoxaparin Sodium 40 mg DAILY SC 06/15/25 10:00 06/16/25 09:05 40 MG Amlodipine Besylate 10 mg DAILY PO 06/16/25 10:30 UNV Examination: GENERAL:Normal, CVS:Normal, ABDOMEN:Normal, NEURO:Abnormal laboratory and microbiology Laboratory Tests 06/16/25 05:01 Test 06/16/25 05:01 Range/Units Serum Glucose 79 74-106 mg/dL Microbiology Date/Time Source Procedure Growth Status 06/14/25 21:38 Blood Blood Culture - Preliminary NO GROWTH AFTER 24 HOURS OF INCUBATION. Resulted 06/14/25 20:17 Voided Urine Urine Culture - Preliminary Resulted Problem List/Assessment/Plan Problem List/Assessment/Plan CKD 5 HTN acute pyelonephritis ; gram neg rods in urine anemia due to ckd dm2 diabetic nephropathy CKD is stable, no indication for dialysis at this time. Has plan for outpatient peritoneal dialysis resume home medication , hydralazine, norvasc, losartan is on hold currently but will resume outpatient. inpatient if BP uncontrolled IV aBX and urine cultures Epogen Sub Q 3x a week avoid hypotension renal dm2 diet Plan discussed with: Patient My Orders My Orders Orders - DESTINEE AGRAWAL MD Procedure Category Date Status Time Amlodipine Tablet PHA 06/16/25 Logged (Norvasc Tablet) 10:30 Hydralazine Hcl PHA 06/16/25 Verified Tablet (Apresoline 10:30 Basic Metabolic Panel LAB 06/17/25 Verified 04:00 DESTINEE AGRAWAL MD Jun 16, 2025 10:25
--- NOTE | 2025-06-16 13:39 | DVHPNRES ---
Progress Note Date Seen: Jun 16, 2025 Resident Creating Document: JESSICA BRITO RESIDENT Medical Necessity Reason Pt with a Central, PICC or Fol: No Subjective Review of Systems 64-year-old man with a past medical history of hypertension, BPH, CKD stage 5, stroke came to this facility due to urinary symptoms for the past 2 days. Patient reports that the past few days he has had dysuria, hesitancy, urinary frequency, burning micturition and noted blood in his urine. Also reports of generalized weakness and lower abdominal discomfort. On inquiry, patient reports of subjective fever and chills but denies nausea, vomiting, chest pain, shortness of breath, or any bowel habit changes. Patient being seen by airport driver (Dr. Marie), and per patient he was told that he may need dialysis in near future. PMHx:hypertension, BPH, diabetes, CKD, stroke PSHx: Hernia surgery Social history: Current smoker Home medication: Atorvastatin, duloxetine, tamsulosin, calcium acetate, sodium bicarbonate, amlodipine, Epogen, losartan, calcitriol, sucralfate, famotidine, and finasteride Allergic history: No known allergy ROS 06/15/2025: Patient was seen and examined by me at the bedside. labs and charts reviewed. Patient complained of abdominal discomfort and ultrasound of bladder was done which showed no acute urinary retention 76 mL urine in the bladder. IV antibiotics Zosyn continued and vancomycin discontinued. Patient denies any lower abdominal pain today but continues to have urinary symptoms. CT scan abdomen pelvis shows moderate bilateral perinephric and periureteral fat stranding with wall thickening of the urinary bladder. Bilateral hydronephrosis with no obstructing calculus noted. Serum PSA ordered today. Treatment for BPH continued 06/16/2025: Patient seen and examined by me at the bedside today. Labs and charts reviewed. patient reports feeling better, urine is yellow in color with no blood in it. He denies any pain or dysuria. Blood culture preliminary shows no growth after 24 hours. Urine culture pending. Possible discharge tomorrow. Objective vital signs Vital Sign Date Time Temp Pulse Resp B/P (MAP) Pulse Ox O2 Delivery O2 Flow Rate FiO2 06/16/25 12:48 151/82 06/16/25 09:00 98.5 69 18 96 98.5 06/16/25 08:00 Room Air* 0 21 Total Intake and Output 06/15/25 06/15/25 06/16/25 15:00 23:00 07:00 Intake Total 3100 ml 380 ml 100 ml Output Total 500 ml 800 ml 1000 ml Balance 2600 ml -420 ml -900 ml medications Current Medications Medications Dose Ordered Sig/Glenn Route Start Time Stop Time Status Last Admin Dose Admin Piperacillin Sod/ Tazobactam Sod 100 ml @ 25 mls/hr Q12HR IV 06/15/25 10:00 06/16/25 09:05 25 MLS/HR Acetaminophen 650 mg Q6HR PO 06/15/25 06:00 06/16/25 12:48 650 MG Acetaminophen/ Hydrocodone Bitart 1 tab Q6HPRN PRN PO 06/15/25 01:45 Atorvastatin Calcium 80 mg HS PO 06/15/25 22:00 06/15/25 21:38 80 MG Finasteride 5 mg DAILY PO 06/15/25 10:00 06/16/25 09:05 5 MG Tamsulosin HCl 0.4 mg QPM PO 06/15/25 18:00 06/15/25 17:30 0.4 MG Pantoprazole Sodium 40 mg DAILY IV 06/15/25 10:00 06/16/25 09:05 40 MG Amlodipine Besylate 10 mg DAILY PO 06/16/25 10:30 06/16/25 12:47 10 MG Hydralazine HCl 50 mg Q8HR PO 06/16/25 10:30 06/16/25 12:48 50 MG Enoxaparin Sodium 30 mg DAILY SC 06/17/25 10:00 Examination Pt is lying on bed General Appearance: Alert, Oriented X3, Cooperative, Not in acute distress HEENT: Atraumatic, Mucous membranes moist/pink Respiratory: Clear to auscultation, Normal air movement, No added sounds Cardiovascular: Regular rate, Normal S1, Normal S2, No murmurs Abdominal: Active bowel sounds, Soft, no distention, no tenderness Extremities: No edema, Normal pulses, No tenderness/swelling Skin: No Significant rash, except past surgical scars Neuro: Normal speech, sensorimotor deficits none Psych/Mental Status: Mental status NL, Mood NL Nurse was there as it infrastructure engineer during examination laboratory and microbiology Laboratory Tests 06/16/25 05:01 Test 06/16/25 05:01 Range/Units Serum Glucose 79 74-106 mg/dL Microbiology Date/Time Source Procedure Growth Status 06/14/25 21:38 Blood Blood Culture - Preliminary NO GROWTH AFTER 24 HOURS OF INCUBATION. Resulted 06/14/25 20:17 Voided Urine Urine Culture - Preliminary Resulted Labs and/or images reviewed: Labs reviewed by me, Image(s) reviewed by me Problem List/Assessment/Plan Problem List/Assessment/Plan # Sepsis, due to UTI # Acute Complicated UTI # ROBERTA, on CKD, (due to obstructive nephropathy) VMN # Ruled out Urinary retention # History of BPH # History of stroke # Moderate anemia, due to above ckd -CT abdominopelvic shows, moderate bilateral perinephric and Periureteral fat stranding with wall thickening of the urinary bladder and associated adjacent fat stranding. Correlate for cystitis with ascending infectious process with Mild to moderate bilateral hydronephrosis with no obstructing calculus noted -Bladder scan performed, showed 76 mL, 06/15/2025 shows 128 mL -Empiric antibiotic Zosyn -IV fluid -Urine Preliminary culture shows more than 100,000 CFU/ mL Gram-negative rods, still willing at pathogens -blood culture preliminary shows no growth after 24 hours of intubation -Continue home meds -Nephrology consult suggested CKD is stable, no indication for dialysis at this time. Has plan for outpatient peritoneal dialysis; resume home medication; IV aBX and urine cultures; avoid hypotension; renal dm2 diet, Epogen Sub Q 3x a week # Diabetes type 2 # Hypertension - ISS - continuously monitor blood pressure GI prophylaxis: Protonix DVT prophylaxis: Lovenox Diet: renal diet Goals of care discussed with the patient for more than 27 minutes: Full code status Case discussed with , patient and nurse. Plan discussed with: Patient, Other (rn) Visit Coding STANDARD RES Billing Provider: ROE TOUSSAINT MD Date of Service if different f: Jun 16, 2025 Common Visit Codes: [id number] INP/OBS CARE(HIGH) JESSICA BRITO RESIDENT Jun 16, 2025 13:39 ROE TOUSSAINT MD Jun 16, 2025 18:59
[2025-06-17 01:00] VITALS: BP 155/73; PULSE 68; RESP 19; TEMP 98.2; O2SAT 96
[2025-06-17 05:02] VITALS: BP 160/80; PULSE 60; RESP 18; TEMP 97.7; O2SAT 98
[2025-06-17 07:31] LABS: Hematocrit 29.2 % (41.0-53.0); Hemoglobin 9.6 g/dL (13.5-17.5); Mean Corpuscular Hemoglobin 30.0 pg (28.0-32.0); Mean Corpuscular Volume 91.7 fL (80.0-100.0); Nucleated Red Blood Cells % 0.0 %
[2025-06-17 07:39] LABS: Chloride 105 mmol/L (98-107); Potassium 4.0 mmol/L (3.5-5.1); Sodium 142 mmol/L (136-145)
[2025-06-17 07:40] LABS: Anion Gap 13 (5-15); Carbon Dioxide 24 mmol/L (20-31)
[2025-06-17 07:42] LABS: Calcium 8.5 mg/dL (8.7-10.4)
[2025-06-17 07:45] LABS: Glucose 93 mg/dL (74-106)
[2025-06-17 07:46] LABS: BUN/Creatinine Ratio 10.5 (10.0-20.0)
[2025-06-17 07:56] LABS: Blood Urea Nitrogen 47 mg/dL (9-23)
[2025-06-17 08:00] VITALS: PULSE 84; RESP 18; O2SAT 97
[2025-06-17 09:00] VITALS: BP 152/87; PULSE 63; RESP 18; TEMP 99.4; O2SAT 96
[2025-06-17] MEDS ORDERED: CEPH250C PO (11:04)
[2025-06-17] MEDS: ENOXAPARIN SOD 30 MG/0.3 ML SYRINGE SC SCH (11:13)
[2025-06-17] MEDS ORDERED: LEVO500T91 PO (12:00)
[2025-06-17 13:00] VITALS: BP 146/85; PULSE 59; RESP 20; TEMP 99; O2SAT 98
[2025-06-17 13:03] VITALS: BP 146/82; PULSE 63; RESP 18; TEMP 99.4; O2SAT 96
--- NOTE | 2025-06-17 13:26 | DVHPN2 ---
Progress Note Date Seen: Jun 17, 2025 Medical Necessity Reason Pt with a Central, PICC or Fol: No Objective vital signs Vital Sign Date Time Temp Pulse Resp B/P (MAP) Pulse Ox O2 Delivery O2 Flow Rate FiO2 06/17/25 13:03 99.4 63 18 96 06/17/25 10:08 146/82 06/17/25 08:00 Room Air* 0 21 Total Intake and Output 06/16/25 06/16/25 06/17/25 15:00 23:00 07:00 Intake Total 660 ml 700 ml 340 ml Output Total 480 ml 200 ml 1101 ml Balance 180 ml 500 ml -761 ml medications Current Medications Medications Dose Ordered Sig/Glenn Route Start Time Stop Time Status Last Admin Dose Admin Piperacillin Sod/ Tazobactam Sod 100 ml @ 25 mls/hr Q12HR IV 06/15/25 10:00 06/17/25 10:08 25 MLS/HR Acetaminophen 650 mg Q6HR PO 06/15/25 06:00 06/17/25 11:47 650 MG Acetaminophen/ Hydrocodone Bitart 1 tab Q6HPRN PRN PO 06/15/25 01:45 Atorvastatin Calcium 80 mg HS PO 06/15/25 22:00 06/16/25 22:08 80 MG Finasteride 5 mg DAILY PO 06/15/25 10:00 06/17/25 10:08 5 MG Tamsulosin HCl 0.4 mg QPM PO 06/15/25 18:00 06/16/25 18:22 0.4 MG Pantoprazole Sodium 40 mg DAILY IV 06/15/25 10:00 06/17/25 10:07 40 MG Amlodipine Besylate 10 mg DAILY PO 06/16/25 10:30 06/17/25 10:08 10 MG Hydralazine HCl 50 mg Q8HR PO 06/16/25 10:30 06/17/25 06:44 50 MG Enoxaparin Sodium 30 mg DAILY SC 06/17/25 10:00 06/17/25 11:13 30 MG Examination: GENERAL:Normal, CVS:Normal, ABDOMEN:Normal, NEURO:Abnormal laboratory and microbiology Laboratory Tests 06/17/25 06:30 Test 06/17/25 06:30 Range/Units Serum Glucose 93 74-106 mg/dL Microbiology Date/Time Source Procedure Growth Status 06/14/25 21:38 Blood Blood Culture - Preliminary NO GROWTH AFTER 48 HOURS OF INCUBATION. Resulted 06/14/25 20:17 Voided Urine Urine Culture - Preliminary Resulted Problem List/Assessment/Plan Problem List/Assessment/Plan CKD 5 HTN acute pyelonephritis ; gram neg rods in urine anemia due to ckd dm2 diabetic nephropathy CKD is stable, no indication for dialysis at this time. Has plan for outpatient peritoneal dialysis resume home medication , hydralazine, norvasc, losartan is on hold currently but will resume outpatient. inpatient if BP uncontrolled IV aBX and urine cultures are pending sensitivities Epogen Sub Q 3x a week avoid hypotension renal dm2 diet Plan discussed with: Patient DESTINEE AGRAWAL MD Jun 17, 2025 13:26
--- NOTE | 2025-06-17 16:43 | DVHDSRES ---
Discharge Summary Date of Admission Resident Creating Document: JESSICA BRITO RESIDENT Jun 14, 2025 at 23:47 Date of Discharge: Jun 17, 2025 Admitting Diagnosis Acute renal failure Labs/Diagnostic Data: Laboratory Results Test 06/17/25 06:30 06/16/25 05:01 06/15/25 04:59 06/14/25 21:34 White Blood Count 5.3 10^3/uL (4.4-10.8) Red Blood Count 3.19 10^6/uL (4.5-5.90) Hemoglobin 9.6 g/dL (13.5-17.5) Hematocrit 29.2 % (41.0-53.0) Mean Corpuscular Volume 91.7 fL (80.0-100.0) Mean Corpuscular Hemoglobin 30.0 pg (28.0-32.0) Mean Corpuscular Hemoglobin Concent 32.8 g/dL (32.0-36.0) Red Cell Distribution Width 13.4 % (11.8-14.3) Platelet Count 198 10^3/uL (140-450) Mean Platelet Volume 9.4 fL (6.9-10.8) Neutrophils (%) (Auto) 76.6 % (37.0-80.0) Lymphocytes (%) (Auto) 12.6 % (10.0-50.0) Monocytes (%) (Auto) 8.2 % (0.0-12.0) Eosinophils (%) (Auto) 2.3 % (0.0-7.0) Basophils (%) (Auto) 0.3 % (0.0-2.0) Neutrophils # (Auto) 4.1 10 ^3/uL (1.6-8.6) Lymphocytes # (Auto) 0.7 10 ^3/uL (0.4-5.4) Monocytes # (Auto) 0.4 10 ^3/uL (0-1.3) Eosinophils # (Auto) 0.1 10 ^3/uL (0-0.8) Basophils # (Auto) 0 10 ^3/uL (0-0.2) Nucleated Red Blood Cells 0.0 % Sodium Level 142 mmol/L (136-145) Potassium Level 4.0 mmol/L (3.5-5.1) Chloride Level 105 mmol/L (98-107) Carbon Dioxide Level 24 mmol/L (20-31) Anion Gap 13 (5-15) Blood Urea Nitrogen 47 mg/dL (9-23) Creatinine 4.47 mg/dL (0.700-1.30) Glomerular Filtration Rate Calc 14 mL/min (>90) BUN/Creatinine Ratio 10.5 (10.0-20.0) Serum Glucose 93 mg/dL (74-106) Calcium Level 8.5 mg/dL (8.7-10.4) Phosphorus Level 3.8 mg/dL (2.4-5.1) Iron Level 28 ug/dL (65-175) Total Iron Binding Capacity 176 ug/dL (250-425) Percent Iron Saturation 15.9 % (20-55) Ferritin 455.3 ng/mL (22-322) Hemoglobin A1c 5.4 % A1C (<5.7) Magnesium Level 2.2 mg/dL (1.6-2.6) Total Bilirubin 0.3 mg/dL (0.2-1.0) Aspartate Amino Transferase (AST) 9 U/L (13-40) Alanine Aminotransferase (ALT) 15 U/L (7-40) Alkaline Phosphatase 87 U/L (46-116) Total Protein 6.3 g/dL (5.7-8.2) Albumin 3.6 g/dL (3.2-4.8) Free Prostate Specific Antigen 1.33 ng/mL (N/A) Percent Free Prostate Specific Ag 44.3 % (.) Prostate Specific Antigen Total 3.0 ng/mL (0.0-4.0) Parathyroid Hormone (Intact) 147.5 pg/mL (18.4-80.1) Lactic Acid Level 1.1 mmol/L (0.4-2.0) Test 06/14/25 20:17 06/14/25 19:52 Urine Color Light-brown (Yellow) Urine Clarity Ex.turbid (Clear) Urine pH 7.0 (5.0-9.0) Urine Specific Reading 1.013 (1.001-1.035) Urine Protein 3+ (Negative) Urine Ketones Negative (Negative) Urine Blood 3+ /uL (Negative) Urine Nitrite Negative (Negative) Urine Bilirubin Negative (Negative) Urine Urobilinogen Normal mg/dL (Negative) Urine Leukocyte Esterase 3+ /uL (Negative) Urine RBC 794 /hpf (0 - 3) Urine WBC Clumps Present /hpf (None Seen) Urine Microscopic WBC 2166 /HPF (0-3) Urine Squamous Epithelial Cells None seen /hpf (<5) Urine Bacteria None seen /hpf (None Seen) Urine Creatinine 70.37 mg/dL (30.0-125.0) Urine Protein/Creatinine Ratio 6.78 Urine Sodium 49 mmol/L (40-220) Urine Glucose Normal mg/dL (Normal) Urine Total Protein 476.8 mg/dL (1-14) Prothrombin Time 10.6 sec (9.3-11.8) Prothrombin Time INR 1.00 (0.9-1.15) Activated Partial Thromboplast Time 38.2 SEC (24.5-34.5) Other Laboratory Tests 06/17/25 06:30 Brief Hx & Hospital Course: 64-year-old man with a past medical history of hypertension, BPH, CKD stage 5, stroke came to this facility due to urinary symptoms for the past 2 days. Patient reports that the past few days he has had dysuria, hesitancy, urinary frequency, burning micturition and noted blood in his urine. Also reports of generalized weakness and lower abdominal discomfort. On inquiry, patient reports of subjective fever and chills but denies nausea, vomiting, chest pain, shortness of breath, or any bowel habit changes. Patient being seen by engineering aide (Dr. Marie), and per patient he was told that he may need dialysis in near future. PMHx:hypertension, BPH, diabetes, CKD, stroke PSHx: Hernia surgery Social history: Current smoker Home medication: Atorvastatin, duloxetine, tamsulosin, calcium acetate, sodium bicarbonate, amlodipine, Epogen, losartan, calcitriol, sucralfate, famotidine, and finasteride Allergic history: No known allergy Brief history of hospitalization: Patient was admitted for sepsis due to UTI, he had acute complicated UTI and ROBERTA on CKD Stage 5 due to obstructive nephropathy. Urinary retention was ruled out as a bladder scan was performed which initially showed 76 mL of urine in the bladder and therefore catheterization was not done. On 06/15/2025 and a bladder scan was performed as patient reported being unable to urinate well and showed 128 mL. showed UTI for which the patient was given empiric antibiotics Zosyn and IV fluids. A CT abdomen and pelvis was done which showed moderate bilateral perinephric and periureteral fat stranding with wall thickening of the urinary bladder and associated adjacent fat stranding. Correlate for cystitis with ascending infectious process with [id number] bilateral hydronephrosis with no obstructing calculus noted. Patient also has moderate anemia due to CKD. Nephrology consult was done who suggested CKD stable, no indication for dialysis at this time but has planned for outpatient peritoneal dialysis. Patient is to resume home medication patient was given a renal and diabetic diet throughout his hospitalization. Epogen subcutaneously was also given. Blood culture preliminary showed no growth after 24 hours of intubation and urine culture shows more than [id number] CFU / mL Gram-negative rods. We are still pending the final urinary culture which will be reviewed in the discharge clinic. Patient reports that his symptoms have abated, he feels better, urine has no hematuria anymore and he has no dysuria or urinary frequency now. He is stable and is being discharged with levofloxacin 500 mg p.o. to be taken daily for 5 days. Patient has communicated understanding and is being discharged. He is to continue all his home medications and follow up at the discharge Clinic and with his primary care physician. Operations or Procedures EXAM: CT CT AB PEL WO CON-NO ORAL OR IV IMPRESSION: Moderate bilateral perinephric and Periureteral fat stranding with wall thickening of the urinary bladder and associated adjacent fat stranding. Correlate for cystitis with ascending infectious process. Mild to moderate bilateral hydronephrosis with no obstructing calculus noted. Constipation. Mild gastric wall thickening which may be due to inadequate distention/mild gastritis. Bibasilar linear atelectasis with 4 mm Right basilar solid nodule. Recommend correlation minor criteria. 2.4 x 1.4 cm opacity of the right lung base overlying an area of linear atelectasis which may represent atelectasis/scarring with lung lesion not excluded. Follow-up is recommended. Mixed lytic and sclerosis of the L2 vertebral body with slightly increased sclerosis of the spinous process of L2. Metastasis is within the differential. Condition at Discharge: Stable Final Diagnosis/Problems List # Sepsis, due to UTI # Acute Complicated UTI # ROBERTA, on CKD 5, (due to obstructive nephropathy) VMN #acute pylonephritis #b/l hydronephrosis #acute mild gastritis # Ruled out Urinary retention # History of BPH # History of stroke # Moderate anemia, due to above ckd 5 # Diabetes type 2 # diabetic nephropathy # Hypertension Discharge Disposition: Home Discharge Instruct/Medications Diet: Consistent carbohydrate, Cardiac 2g Na,low cholest Diet comment: CARDIAC AND CONSISTENT CARBOHYDRATE DIET Activity: No Restrictions, As Tolerated Follow Up/Referral: folloup with pcp in 10 days followup at discharge clinic within 1 week Medications: as per emr Scheduled Amlodipine Besylate (Amlodipine Besylate), 1 TAB PO DAILY, (Reported) Atorvastatin Calcium (Atorvastatin Calcium), 1 TAB PO DAILY, (Reported) Finasteride (Finasteride), 1 TAB PO DAILY, (Reported) Fluticasone-Salmeterol (Advair Diskus 250/50), 1 PUFF INH BID, (Reported) Furosemide (Furosemide), 1 TAB PO DAILY, (Reported) Hydralazine Hcl (Hydralazine Hcl), 1 TAB PO TID, (Reported) Hydrocortone (Hydrocortisone 2.5%), 1 APPLIC TOP BID, (Reported) Levofloxacin Hemihydrate (Levaquin 500 Mg), 750 MG PO DAILY Losartan Potassium (Losartan Potassium), 1 TAB PO DAILY, (Reported) Tamsulosin Hcl (Tamsulosin Hcl), 1 CAP PO DAILY, (Reported) Miscellaneous Medications Ascorbic Acid (Vitamin C Tablet), 500 MG GT, (Reported) Aspirin (Aspir-81), 81 MG PO, (Reported) Cholecalciferol (Vitamin D3), 50 MCG PO, (Reported) Duloxetine Hcl (Cymbalta), 30 MG PO, (Reported) Ferrous Sulfate (Ferrous Sulfate), 325 MG PO, (Reported) Sodium Bicarbonate (Sodium Bicarbonate), 325 MG PO, (Reported) Sodium Bicarbonate (Sodium Bicarbonate), 650 MG PO, (Reported) Discharge Statement: "Patient was advised to return to the ER or call 911 if any headaches, dizziness, shortness of breath, chest pain, abdominal pain, bleeding, fevers, or worsening of medical condition. Patient was counseled about treatment plan, medications, possible side effects, patientverbalized understanding. All questions were answered to the best of my ability. This discharge took greater then 30 minutes in planning, reviewing documentation, counseling the patient, and discussing with other team members." ASSESSMENT ASSESSMENT Assessment # Sepsis, due to UTI # Acute Complicated UTI # ROBERTA, on CKD, (due to obstructive nephropathy) VMN #acute pylonephritis #b/l hydronephrosis #acute mild gastritis # Ruled out Urinary retention # History of BPH # History of stroke # Moderate anemia, due to above ckd # Diabetes type 2 # Hypertension Visit Coding STANDARD RES Billing Provider: ROE TOUSSAINT MD Date of Service if different f: Jun 17, 2025 Common Visit Codes: 33159-WON/OBS DISCH DAY >30min JESSICA BRITO RESIDENT Jun 17, 2025 16:43
== END 2025-06-17 14:47 | disposition home or self-care (01) | DRG 720 ==
LOC: ER 19:17 → OVERFLOW 23:47 → WEST WING 06-15 18:14
PROVIDERS: ADMIT Internal Medicine Geriatric Medicine; ATTEND Internal Medicine Geriatric Medicine
DX: A41.9 Sepsis, unspecified organism (principal); N17.0 Acute kidney failure with tubular necrosis; I12.0 Hypertensive chronic kidney disease with stage 5 chronic kidney disease or end stage renal disease; I69.351 Hemiplegia and hemiparesis following cerebral infarction affecting right dominant side; D63.1 Anemia in chronic kidney disease; N18.5 Chronic kidney disease, stage 5; N13.6 Pyonephrosis; E11.22 Type 2 diabetes mellitus with diabetic chronic kidney disease; K29.00 Acute gastritis without bleeding; N40.0 Benign prostatic hyperplasia without lower urinary tract symptoms; F17.200 Nicotine dependence, unspecified, uncomplicated
CPT/HCPCS: 36415; 74176; 80048; 80053; 81001; 82570; 82728; 83036; 83540; 83550; 83605; 83735; 83970; 84100; 84154; 84156; 84300; 85025; 85610; 85730; 87040; 87086; 87088; 87186; 96365; G0378; J2470; J2543